=== PATIENT | female | born 1975 | race Caucasian/White ===

== ENCOUNTER 2018-05-06 03:47 | Emergency (ER) | payer SELFPAY ==
[~2018-05-06] VITALS: Ht 162.6 cm; Wt 77.1 kg
[2018-05-06 03:54] VITALS: Ht 162.6 cm; Wt 77.1 kg
[2018-05-06 04:29] VITALS: BP 125/89
== END 2018-05-06 04:30 | disposition home or self-care (01) ==
LOC: ED 03:47
DX: K02.9 Dental caries, unspecified (principal); K08.89 Other specified disorders of teeth and supporting structures; Z88.6 Allergy status to analgesic agent; J45.909 Unspecified asthma, uncomplicated